=== PATIENT | male | born 1970 | race American Indian/Alaskan Native ===

== ENCOUNTER 2016-07-24 02:05 | Inpatient (IN) | payer MEDICAID, OTHER ==
--- NOTE | 2016-07-24 02:13 | C.PDOC ---
History Of Present Illness pt was medically cleared at [facility] and was accepted in transfer by dr gruber. Pt is depressed and had suicidal ideation. Pleasant and cooperative Time Seen by Provider: 07/24/16 02:12 History Per: Patient History/Exam Limitations: no limitations Current Symptoms Are (Timing): Still Present Suicide/Self Injury Attempted (Context): None Modifying Factor(s): None Severity: None Associated Symptoms: Depression, Suicidal Thoughts Involuntary Hold By: None Recent travel outside of the [place]: No Additional History Per: EMS Past Medical History Reviewed: Historical Data, Nursing Documentation, Vital Signs Vital Signs: Last Vital Signs Temp 97.9 F 07/24/16 02:13 Pulse 68 07/24/16 02:13 Resp 18 07/24/16 02:13 BP 143/80 07/24/16 02:13 Pulse Ox 100 07/24/16 02:13 Family History: States: No Known Family Hx Review Of Systems Constitutional: Negative for: Fever, Chills Cardiovascular: Negative for: Chest Pain Respiratory: Negative for: Shortness of Breath Neurological: Negative for: Weakness Psych: Positive for: Depression, Suicidal ideation Physical Exam - Physical Exam Appears: Non-toxic, No Acute Distress Skin: Warm, Dry Chest: Symmetrical Cardiovascular: Rhythm Regular Respiratory: No Rales, No Rhonchi, No Wheezing Gastrointestinal/Abdominal: Soft, No Tenderness Extremity: Normal ROM Neurological/Psych: Oriented x3, Normal Speech, Normal Cognition Gait: Steady ED Course And Treatment O2 Sat by Pulse Oximetry: 100 Pulse Ox Interpretation: Normal Disposition Discussed With : Janie Gruber Comment: accepted the pt on her service and took over the care at 2:27 AM Doctor Will See Patient In The: Hospital Counseled Patient/Family Regarding: Studies Performed, Diagnosis - Disposition Disposition: HOSPITALIZED Disposition Time: 02:13 Condition: FAIR - Clinical Impression Clinical Impression: Major depression Decision To Admit - Pt Status Changed To: Hospital Disposition Of: Inpatient - Admit Certification Admit to Inpatient:: After my assessment, the patient will require hospitalization for at least two midnights. This is because of the severity of symptoms shown, intensity of services needed, and/or the medical risk in this patient being treated as an outpatient. - InPatient: Physician Admission Certification: I certify that this patient requires 2 or more midnights of care for the following reason:: After my assessment, the patient will require hospitalization for at least two midnights. This is because of the severity of symptoms shown, intensity of services needed, and/or the medical risk in this patient being treated as an outpatient. - . Bed Request Type: Psychiatry Admitting Physician: Janie Gruber Patient Diagnosis: Major depression
[2016-07-24 03:01] VITALS: O2SAT 99
[2016-07-24] MEDS ORDERED: Pneumococcal 23-Valent Vaccine IM ONE (04:22)
--- NOTE | 2016-07-24 10:02 | PCM.PSYCH ---
Initial Psychiatric Evaluation - Initial Psychiatric Evaluation Type of Admission: Voluntary Legal Status: Capacity Chief Complaint (in patient's own words): I was feeling depressed and suicidal History of Present Illness and Precipitating Events: Patient is a 46 years old AAM, who came to the hospital with depressed mood and auditory hallucinations command type to kill himself. Patient reports a long history of drinking and depression. As per the patient, soon after discharge from the hospital last year, he stopped taking his medications and relapsed on drinking. Patient states that he is drinking since age of 6. He drinks 10-20 beers, and 1-2 pints of liquor on a daily. He also reports of smoking 1-2 bags on a daily basis. Patient states that yesterday he consumed more than 1 pints of vodka, and 7 beers, started hearing voices telling him to kill himself. He got concerned and came to the hospital to get help. Patient reports depressed mood, feelings of hopelessness and helplessness poor sleep and poor appetite. He reports auditory hallucinations and persecutory delusions that someone is following him. He denies visual hallucinations. He reports withdrawal symptoms from drinking including anxiety, headaches and sweating. He denies any seizures from drinking in the past. Past medical history History of DVT Current Medications: Active Medications Generic Name Dose Route Start Last Admin Trade Name Freq PRN Reason Stop Dose Admin Nicotine 1 patch 07/24/16 10:00 Nicoderm Cq TD DAILY MEGAN Past Psychiatric History - Past Psychiatric History Previous Treatment History: Inpatient Pertinent Medical Hx (Current Medical&Sleep Prob, Allergies): Allergies Allergy/AdvReac Type Severity Reaction Status Date / Time velazquez AdvReac RASH Verified 07/24/16 02:12 tomato AdvReac RASH Verified 07/24/16 02:13 No Known Home Med 07/24/16 Review of Systems - Review of Systems All systems: reviewed and no additional remarkable complaints except - Psychiatric Psychiatric: Anxiety, Depression, Irritability, Suicidal Ideation Mental Status Examination - Personal Presentation Personal Presentation: Looks stated age - Affect Affect: Constricted, Depressed - Motor Activity Motor Activity: Calm - Reliability in Providing Information Reliability in Providing Information: Poor, due to alteration in thoughts, Poor , due to altered mood - Speech Speech: Disorganized - Mood Mood: Depressed, Anxious - Formal Thought Process Formal Thought Process: Hallucinations, Delusions, Loosening of associations - Hallucinations/Delusions Hallucinations: Auditory Delusions: Persecution - Obsessions/Compulsions Obsessions: No Compulsions: No - Cognitive Functions Orientation: Person, Place, Situation, Time Sensorium: Alert Attention/Concentration: Attentive Abstract Thinking: [place] Estimate of Intelligence: Below average Judgement: Imparied, as evidence by: Poor judgement, Imparied, as evidence by: Lack of insight into illness - Risk Risk: Suicidal, Withdrawal, Diminished functioning - Strength & Assets Inventory Strength & Assets Inventory: Cooperative - Limitations Limitations: Living alone DSM 5 DX - DSM 5 DSM 5 Diagnosis: Major depressive disorder recurrent severe with psychotic features Rule out Schizoaffective disorder depressed type Alcohol use disorder severe Alcohol withdrawal uncomplicated Cocaine use disorder mild - Recommended/Plan of Treatment Treatment Recommendations and Plan of Treatment: Major depressive disorder recurrent severe with psychotic features Rule out Schizoaffective disorder depressed type CBT Psychoeducation Supportive therapy, group therapy, individual therapy Paxil 10 mg by mouth daily Risperdal 1 mg by mouth daily at bedtime Neurontin 100 mg by mouth 3 times a day Trazodone 50 mg by mouth daily at bedtime Alcohol use disorder severe CBT Psychoeducation Supportive therapy, individual therapy Use RI for abstinence Alcohol withdrawal uncomplicated CBT Psychoeducation Supportive therapy, individual therapy Librium when necessary Folic acid/thiamine/multivitamin Cocaine use disorder mild Monitor signs and symptoms Use RI for abstinence - Smoking Cessation Smoking Cessation Initiated: No
--- NOTE | 2016-07-25 13:20 | PCM.PYCHPN ---
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 The pt is compliant with medications and reports no side-effects. Symptoms are improving but needs more time to stabilize. After care discussed, support and psychoeducation given. Seroquel added for insomnia and irritability Medication Change: Yes (seroquel) Medical Record Reviewed: Yes Mental Status Examination - Cognitive Function Orientation: Person, Place, Situation, Time Memory: Impaired Attention: WNL Concentration: Poor Association: WNL Fund of Knowledge: Poor - Mood Mood: Depressed, Anxious - Affect Affect: Constricted, Depressed - Speech Speech: Appropriate - Formal Thought Process Formal Thought Process: Hallucinations, Delusions, Loosening of associations - Suicidal Ideation Suicidal Ideation: No - Homicidal Ideation Homicidal Ideation: No Goal/Treatment Plan - Goal/Treatment Plan Need for Continued Stay: Discharge may exacerbated symptoms, Severe functional impairment Progress Toward Problem(s) and Goals/Treatment Plan: Continue medications Support and psychoeducation daily Attend groups and activities daily After care planning: rehab Estimated Date of D/C: 07/30/16
--- NOTE | 2016-07-26 17:56 | PCM.PYCHPN ---
Psychiatric Progress Note - Psychiatric Progress Note Patient seen today, length of contact: 17 min Patient Chief Complaint: "I couldn't sleep again" Problems Identified/Issues Discussed: The pt is seen, chart reviewed, case discussed with staff. The pt is compliant with medications and reports no side-effects. Symptoms are improving. He says he didn;t sleep but staff say he did. Getachewpablo was skipped bc of that. will get tonight Podiatry called After care discussed, support and psychoeducation given. Wants rehab Medication Change: Yes (seroquel) Medical Record Reviewed: Yes Mental Status Examination - Cognitive Function Orientation: Person, Place, Situation, Time Memory: Impaired Attention: WNL Concentration: Poor Association: WNL Fund of Knowledge: Poor - Mood Mood: Depressed, Anxious - Affect Affect: Constricted, Depressed - Speech Speech: Appropriate - Formal Thought Process Formal Thought Process: Hallucinations, Delusions, Loosening of associations - Suicidal Ideation Suicidal Ideation: No - Homicidal Ideation Homicidal Ideation: No Goal/Treatment Plan - Goal/Treatment Plan Need for Continued Stay: Discharge may exacerbated symptoms, Severe functional impairment Progress Toward Problem(s) and Goals/Treatment Plan: Continue medications Support and psychoeducation daily Attend groups and activities daily After care planning: rehab Estimated Date of D/C: 07/30/16
--- NOTE | 2016-07-27 09:24 | CP.PCM.CON ---
History of Present Illness - History of Present Illness History of Present Illness: 46 year old with chief complaint of painful callouses and nails of both feet. Past Patient History - Infectious Disease Hx of Infectious Diseases: None - Past Social History Smoking Status: Heavy Smoker > 10 Cigarettes Daily - CARDIAC Other/Comment: DVGT OF RIGHT LEG. PT CLAIMS HE HAD A BLOOD CLOT TO HIS LEG - PULMONARY Hx Respiratory Disorders: No Hx Asthma: No - NEUROLOGICAL Hx Neurological Disorder: No - HEENT Hx HEENT Problems: No - RENAL Hx Chronic Kidney Disease: No - ENDOCRINE/METABOLIC Hx Endocrine Disorders: No - HEMATOLOGICAL/ONCOLOGICAL Hx Blood Disorders: No - INTEGUMENTARY Other/Comment: PT STATES ( SEEN) HE HAS AN OVER GROWTH OF SKIN TO BOTH HIS FEET, PLANTAR AREA. HE CLAIMS THEY NEED TO BE SCRAPED OFF AND WOULD LIKE TO SEE A TRIM LINE WORKER. BECAUSE OF THIS HE HAS DIFFICULTY WALKING R/T PAIN - MUSCULOSKELETAL/RHEUMATOLOGICAL Hx Musculoskeletal Disorders: No - GASTROINTESTINAL Hx Gastrointestinal Disorders: No - GENITOURINARY/GYNECOLOGICAL Hx Genitourinary Disorders: No - PSYCHIATRIC Hx Substance Use: Yes - SURGICAL HISTORY Hx Surgeries: No Hx Tonsillectomy: Yes ( A CHILD) - ANESTHESIA Hx Anesthesia: Yes Hx Anesthesia Reactions: No Meds Allergies/Adverse Reactions: Allergies Allergy/AdvReac Type Severity Reaction Status Date / Time velazquez AdvReac RASH Verified 07/24/16 02:12 tomato AdvReac RASH Verified 07/24/16 02:13 - Medications Medications: Current Medications Acetaminophen (Tylenol 325mg Tab) 650 mg PO Q6 PRN PRN Reason: Fever >100.4 F Dicyclomine HCl (Bentyl) 10 mg PO Q6 PRN PRN Reason: Muscle spasm Diphenhydramine HCl (Benadryl) 50 mg PO Q6 PRN PRN Reason: Extra Pyramidal Symptoms Last Admin: 07/25/16 21:15 Dose: 50 mg Gabapentin (Neurontin) 100 mg PO TID MEGAN Last Admin: 07/26/16 18:46 Dose: 100 mg Haloperidol (Haldol) 5 mg PO Q8 PRN PRN Reason: Moderate Agitation Haloperidol Lactate (Haldol) 5 mg IM Q8 PRN PRN Reason: Moderate Agitation Hydroxyzine HCl (Atarax) 25 mg PO Q6 PRN PRN Reason: Agitation Last Admin: 07/26/16 13:17 Dose: 25 mg Loperamide HCl (Imodium) 2 mg PO Q8 PRN PRN Reason: Diarrhea Lorazepam (Ativan) 1 mg PO Q6 PRN PRN Reason: Symptoms of alcohol withdrawl Last Admin: 07/26/16 09:26 Dose: 1 mg Nicotine (Nicoderm Cq) 1 patch TD DAILY [facility] Last Admin: 07/26/16 09:25 Dose: 1 patch Ondansetron HCl (Zofran Tab) 4 mg PO Q8H PRN PRN Reason: Nausea/Vomiting Paroxetine HCl (Paxil) 20 mg PO QAM MEGAN Quetiapine Fumarate (Seroquel) 100 mg PO HS [facility] Last Admin: 07/26/16 21:35 Dose: 100 mg Trazodone HCl (Desyrel) 50 mg PO HS [facility] Last Admin: 07/26/16 21:35 Dose: 50 mg Results - Vital Signs Recent Vital Signs: Last Vital Signs Temp 98.0 F 07/26/16 09:45 Pulse 108 H 07/26/16 16:28 Resp 19 07/26/16 09:45 BP 118/76 07/26/16 16:28 Pulse Ox 99 07/24/16 03:00
[2016-07-27 11:53] VITALS: RESP 20
--- NOTE | 2016-07-27 13:27 | PCM.PYCHPN ---
Psychiatric Progress Note - Psychiatric Progress Note Patient seen today, length of contact: 17 min Patient Chief Complaint: I was feeling depressed and suicidal Problems Identified/Issues Discussed: Pt was seen, chart reviewed and case discussed with staff. Pt is compliant with medications. States he is feeling better today. Reports he was able to get some sleep last night, but requesting increased dose of Seroquil. Pt also complains of dry mouth. Pt noted to be socializing, attending groups and activities. Pt denies current auditory and visual hallucinations, suicidal ideation and homicidal ideation. At the time of exam, pt is talkative, speech is disorganized, thought process is tangential and circumferential. Aftercare discussed, psychoeducation and support provided. Medication Change: Yes (seroquel) Medical Record Reviewed: Yes Mental Status Examination - Cognitive Function Orientation: Person, Place, Situation, Time Memory: Impaired Attention: WNL Concentration: Poor Association: WNL Fund of Knowledge: Poor - Mood Mood: Depressed, Anxious - Affect Affect: Constricted, Depressed - Speech Speech: Appropriate - Formal Thought Process Formal Thought Process: Hallucinations, Delusions, Loosening of associations - Suicidal Ideation Suicidal Ideation: No - Homicidal Ideation Homicidal Ideation: No Goal/Treatment Plan - Goal/Treatment Plan Need for Continued Stay: Discharge may exacerbated symptoms, Severe functional impairment Progress Toward Problem(s) and Goals/Treatment Plan: Major depressive disorder recurrent severe with psychotic features Rule out Schizoaffective disorder depressed type CBT Psychoeducation Supportive therapy, group therapy, individual therapy Paxil 10 mg by mouth daily Risperdal 1 mg by mouth daily at bedtime Neurontin 100 mg by mouth 3 times a day Trazodone 50 mg by mouth daily at bedtime Alcohol use disorder severe CBT Psychoeducation Supportive therapy, individual therapy Use ID for abstinence Alcohol withdrawal uncomplicated CBT Psychoeducation Supportive therapy, individual therapy Librium when necessary Folic acid/thiamine/multivitamin Cocaine use disorder mild Monitor signs and symptoms Use ID for abstinence Estimated Date of D/C: 07/30/16
--- NOTE | 2016-07-28 10:03 | PCM.PYCHPN ---
Psychiatric Progress Note - Psychiatric Progress Note Patient seen today, length of contact: 17 min Patient Chief Complaint: I feel better Problems Identified/Issues Discussed: Pt was seen, chart reviewed and case discussed with staff. Pt is compliant with medication, without any adverse effects. Pt states he is feeling much better, his mood is improved, and he slept well last night. Denies suicidal ideation, homicidal ideation and visual and auditory hallucinations. At the time of exam, pt is less disorganized and less tangential. Pt's symptoms are improving. Psychoeducation and support provided. Medication Change: Yes (increase risperdal, increase neurontin) Medical Record Reviewed: Yes Mental Status Examination - Cognitive Function Orientation: Person, Place, Situation, Time Memory: Impaired Attention: WNL Concentration: Poor Association: WNL Fund of Knowledge: Poor - Mood Mood: Depressed, Anxious - Affect Affect: Constricted, Depressed - Speech Speech: Appropriate - Formal Thought Process Formal Thought Process: Hallucinations, Delusions, Loosening of associations - Suicidal Ideation Suicidal Ideation: No - Homicidal Ideation Homicidal Ideation: No Goal/Treatment Plan - Goal/Treatment Plan Need for Continued Stay: Discharge may exacerbated symptoms, Severe functional impairment Progress Toward Problem(s) and Goals/Treatment Plan: Major depressive disorder recurrent severe with psychotic features Rule out Schizoaffective disorder depressed type CBT Psychoeducation Supportive therapy, group therapy, individual therapy Paxil 20 mg by mouth daily Risperdal 2 mg by mouth daily at bedtime Neurontin 300 mg by mouth 3 times a day Trazodone 50 mg by mouth daily at bedtime Seroquel 100 mg PO QHS Alcohol use disorder severe CBT Psychoeducation Supportive therapy, individual therapy Use MT for abstinence Alcohol withdrawal uncomplicated CBT Psychoeducation Supportive therapy, individual therapy Librium when necessary Folic acid/thiamine/multivitamin Cocaine use disorder mild Monitor signs and symptoms Use MT for abstinence Estimated Date of D/C: 07/30/16
--- NOTE | 2016-07-28 13:54 | CP.PCM.PN ---
Subjective - Date & Time of Evaluation Date of Evaluation: 07/28/16 Time of Evaluation: 14:13 - Subjective Subjective: 46 y/o male evaluated with b/l LE hypertrophic lesions on feet. Patient states that he has had these callouses bulding upfor some time. He stqaes that he usually cuts them down with a blade but has not been able to since he was admitted. States they are to a point that causes him pain when walking. Denies any f/c/n/v/sob. Objective - Vital Signs/Intake and Output Vital Signs (last 24 hours): Temp Pulse Resp BP Pulse Ox 97.1 F L 86 20 110/69 99 07/27/16 07:52 07/27/16 16:14 07/27/16 07:52 07/27/16 16:14 07/24/16 03:00 - Medications Medications: Current Medications Acetaminophen (Tylenol 325mg Tab) 650 mg PO Q6 PRN PRN Reason: Fever >100.4 F Dicyclomine HCl (Bentyl) 10 mg PO Q6 PRN PRN Reason: Muscle spasm Diphenhydramine HCl (Benadryl) 50 mg PO Q6 PRN PRN Reason: Extra Pyramidal Symptoms Last Admin: 07/25/16 21:15 Dose: 50 mg Gabapentin (Neurontin) 300 mg PO TID [facility] Last Admin: 07/28/16 13:46 Dose: 300 mg Haloperidol (Haldol) 5 mg PO Q8 PRN PRN Reason: Moderate Agitation Haloperidol Lactate (Haldol) 5 mg IM Q8 PRN PRN Reason: Moderate Agitation Hydroxyzine HCl (Atarax) 25 mg PO Q6 PRN PRN Reason: Agitation Last Admin: 07/26/16 13:17 Dose: 25 mg Loperamide HCl (Imodium) 2 mg PO Q8 PRN PRN Reason: Diarrhea Lorazepam (Ativan) 1 mg PO Q6 PRN PRN Reason: Symptoms of alcohol withdrawl Last Admin: 07/28/16 09:21 Dose: 1 mg Nicotine (Nicoderm Cq) 1 patch TD DAILY [facility] Last Admin: 07/28/16 09:21 Dose: 1 patch Ondansetron HCl (Zofran Tab) 4 mg PO Q8H PRN PRN Reason: Nausea/Vomiting Paroxetine HCl (Paxil) 20 mg PO QAM [facility] Last Admin: 07/28/16 09:21 Dose: 20 mg Quetiapine Fumarate (Seroquel) 100 mg PO HS [facility] Last Admin: 07/27/16 21:10 Dose: 100 mg Risperidone (Risperdal Tab) 1 mg PO DAILY MEGAN Risperidone (Risperdal Tab) 2 mg PO HS [facility] Trazodone HCl (Desyrel) 50 mg PO HS [facility] Last Admin: 07/27/16 21:10 Dose: 50 mg - Constitutional Appears: Well, Non-toxic - Additional Findings Additional findings: Vasc: DP/PT 1/4, Temp gradient wnl, Cap fill tiem < 4s x 10 Derm: NO edema, no erythema, no open lesions, no signs of infection, gross hypertrophic lesions at medial aspect of 1st MPJ, platnar 5th MT head, and heels , right 5th MT appears that there may be an underlying ulceration; lesions on dorsal PIPJ of 2/5 b/l as well nails mildly elongated x 10 Neuro: WNL Ortho: Limited due t pain. Assessment and Plan - Assessment and Plan (Free Text) Assessment: 46 y/o male seen and evaluated iwth b/l hypertrophic callous formation. Plan: Patient evaluated and chart reviewed. Discussed with Dr. Jenkins. Lac-Hydrin cream ordered for daily application. patient will need to have callousities trimmed; will need to obtain #10 blade fro [facility]. Will f/u with patient tomorrow.
[2016-07-28] MEDS: Ammonium Lactate 12% Lotion (225 g) EXT SCH (22:05)
[2016-07-29 09:44] VITALS: TEMP 97.6
--- NOTE | 2016-07-29 09:57 | PCM.PYCHPN ---
Psychiatric Progress Note - Psychiatric Progress Note Patient seen today, length of contact: 16 min Patient Chief Complaint: I feel better Problems Identified/Issues Discussed: Pt was seen, chart reviewed and case discussed with staff. Today patient reports improvement in his mood, and hallucinations. He denies any delusions and denies any suicidal ideation, or homicidal ideation. reports improvement in his voices and remained calm and cooperative. he is taking medication and denies any side effects. Psychoeducation and support provided. Patient was seen by a title checker yesterday and today Medication Change: Yes (increase neurontin) Medical Record Reviewed: Yes Mental Status Examination - Cognitive Function Orientation: Person, Place, Situation, Time Memory: Intact Attention: WNL Concentration: WNL Association: WNL Fund of Knowledge: WNL - Mood Mood: Anxious - Affect Affect: Constricted - Speech Speech: Appropriate - Formal Thought Process Formal Thought Process: Delusions - Suicidal Ideation Suicidal Ideation: No - Homicidal Ideation Homicidal Ideation: No Goal/Treatment Plan - Goal/Treatment Plan Need for Continued Stay: Discharge may exacerbated symptoms, Severe functional impairment Progress Toward Problem(s) and Goals/Treatment Plan: Major depressive disorder recurrent severe with psychotic features Rule out Schizoaffective disorder depressed type CBT Psychoeducation Supportive therapy, group therapy, individual therapy Paxil 20 mg by mouth daily Risperdal 1 mg by mouth daily Risperdal 2 mg by mouth daily at bedtime Neurontin 400 mg by mouth 3 times a day Trazodone 50 mg by mouth daily at bedtime Seroquel 100 mg PO QHS Alcohol use disorder severe CBT Psychoeducation Supportive therapy, individual therapy Use SC for abstinence Alcohol withdrawal uncomplicated CBT Psychoeducation Supportive therapy, individual therapy Librium when necessary Folic acid/thiamine/multivitamin Cocaine use disorder mild Monitor signs and symptoms Use SC for abstinence Estimated Date of D/C: 07/30/16 - Smoking Cessation Smoking Cessation Initiated: No
--- NOTE | 2016-07-29 12:30 | CP.PCM.PN ---
Subjective - Date & Time of Evaluation Date of Evaluation: 07/29/16 Time of Evaluation: 12:28 - Subjective Subjective: 46 y/o male evaluated with b/l LE hypertrophic lesions on feet. Patient doing well today. States he is going to go home tomorrow. Denies any acute events. Objective - Vital Signs/Intake and Output Vital Signs (last 24 hours): Temp Pulse Resp BP Pulse Ox 97.6 F 89 20 134/76 99 07/29/16 09:43 07/29/16 09:43 07/29/16 09:43 07/29/16 09:43 07/24/16 03:00 - Medications Medications: Current Medications Acetaminophen (Tylenol 325mg Tab) 650 mg PO Q6 PRN PRN Reason: Fever >100.4 F Dicyclomine HCl (Bentyl) 10 mg PO Q6 PRN PRN Reason: Muscle spasm Diphenhydramine HCl (Benadryl) 50 mg PO Q6 PRN PRN Reason: Extra Pyramidal Symptoms Last Admin: 07/25/16 21:15 Dose: 50 mg Gabapentin (Neurontin) 300 mg PO TID [facility] Last Admin: 07/29/16 10:07 Dose: 300 mg Haloperidol (Haldol) 5 mg PO Q8 PRN PRN Reason: Moderate Agitation Haloperidol Lactate (Haldol) 5 mg IM Q8 PRN PRN Reason: Moderate Agitation Hydroxyzine HCl (Atarax) 25 mg PO Q6 PRN PRN Reason: Agitation Last Admin: 07/26/16 13:17 Dose: 25 mg Lactic Acid (Lac-Hydrin 12% Lotion (225 G)) 0 gm EXT DAILY [facility] Last Admin: 07/28/16 22:05 Dose: 1 applic Loperamide HCl (Imodium) 2 mg PO Q8 PRN PRN Reason: Diarrhea Lorazepam (Ativan) 1 mg PO Q6 PRN PRN Reason: Symptoms of alcohol withdrawl Last Admin: 07/28/16 09:21 Dose: 1 mg Nicotine (Nicoderm Cq) 1 patch TD DAILY [facility] Last Admin: 07/29/16 10:03 Dose: 1 patch Ondansetron HCl (Zofran Tab) 4 mg PO Q8H PRN PRN Reason: Nausea/Vomiting Paroxetine HCl (Paxil) 20 mg PO QAM [facility] Last Admin: 07/29/16 10:02 Dose: 20 mg Quetiapine Fumarate (Seroquel) 200 mg PO [facility] Last Admin: 07/28/16 22:05 Dose: 200 mg Risperidone (Risperdal Tab) 1 mg PO DAILY [facility] Last Admin: 07/29/16 10:03 Dose: 1 mg Risperidone (Risperdal Tab) 2 mg PO HS [facility] Last Admin: 07/28/16 22:05 Dose: 2 mg Trazodone HCl (Desyrel) 50 mg PO [facility] Last Admin: 07/28/16 22:04 Dose: 50 mg - Constitutional Appears: Well, Non-toxic, No Acute Distress - Additional Findings Additional findings: Vasc: DP/PT 1/4, Temp gradient wnl, Cap fill tiem < 4s x 10 Derm: NO edema, no erythema, no open lesions, no signs of infection, gross hypertrophic lesions at medial aspect of 1st MPJ, platnar 5th MT head, and heels , right 5th MT appears that there may be an underlying ulceration; lesions on dorsal PIPJ of 2/5 b/l as well nails mildly elongated x 10 Neuro: WNL Ortho: Limited due t pain. Assessment and Plan - Assessment and Plan (Free Text) Assessment: 46 y/o male seen and evaluated iwth b/l hypertrophic callous formation. Plan: Patient evaluated and chart reviewed Discussed with Dr. Jenkins Calluses and nails debrided x 10 w/o complication To continue to apply lac hydrin daily to callousities Re consult as needed.
[2016-07-29] MEDS: Ammonium Lactate 12% Lotion (225 g) EXT SCH (22:04)
--- NOTE | 2016-07-30 09:35 | PCM.PYCHDC ---
Mental Status Examination - Mental Status Examination Orientation: Person, Place, Situation, Time Memory: Intact Mood: Anxious Affect: Broad Speech: Appropriate Attention: WNL Concentration: WNL Association: WNL Fund of Knowledge: WNL Formal Thought Process: No Impairment Suicidal Ideation: No Current Homicidal Ideation?: No Discharge Summary - Discharge Note Reason for Hospitalization: Suicidal thoughts Consultations:: List each consultation separately and include: 1. Reason for request. 2. Findings. 3. Follow-up Consultations: Podiatry Summary of Hospital Course include:: 1. Description of specific treatment plan utilized for patients during their course of treatmen. 2. Summarize the time- course for resolution of acute symptoms and/or regressed behaviors. 3. Describe issues identified and worked on during hospitalization. 4. Describe medication utilized. 5. Describe medical problems identified and treated. 6. Reassessment of suicide risk Summary of Hospital Course: Patient is a 46 years old AAM, single. He is seen today for d/c and case discussed, chart reviewed. On admission: He came to the hospital with depressed mood and auditory hallucinations command type to kill himself. Patient reports a long history of drinking and depression. As per the patient, soon after discharge from the hospital last year, he stopped taking his medications and relapsed on drinking. Patient states that he is drinking since age of 6. He drinks 10-20 beers, and 1-2 pints of liquor on a daily. He also reports of smoking 1-2 bags on a daily basis. Patient states that yesterday he consumed more than 1 pints of vodka, and 7 beers, started hearing voices telling him to kill himself. He got concerned and came to the hospital to get help. Patient reports depressed mood, feelings of hopelessness and helplessness poor sleep and poor appetite. He reports auditory hallucinations and persecutory delusions that someone is following him. He denies visual hallucinations. He reports withdrawal symptoms from drinking including anxiety, headaches and sweating. He denies any seizures from drinking in the past. Hospital course: The pt was admitted and started on treatment with psychotherapy, support, psychoeducation and medications. OK and CBT used. He is seen by podiatry, too. The pt attended groups and activities, as well as milieu therapy. All the risks and benefits of medications are discussed and the patient understood and agreed. After care discussed with the patient. He wanted to go to [facility] outpt program - Final Diagnosis (DSM 5) Condition upon Discharge: FAIR DSM 5: Major depressive disorder recurrent severe with psychotic features Rule out Schizoaffective disorder depressed type Alcohol use disorder severe Alcohol withdrawal uncomplicated Cocaine use disorder mild Disposition: HOME/ ROUTINE Follow-up Treatment Plan: Medications are sent to a pharmacy in [place] but then cancelled by the communications writer. He asked for a written Rx for all. Given. Attend aftercare: [facility] in [place]. User relapse prevention skills. Return to ED if experience suicidal ideation, homicidal ideation, hallucinations , agitation. Prescriptions/Medication Reconciliation: traZODone [Desyrel] 50 mg PO HS #30 tab Gabapentin [Neurontin] 400 mg PO TID #90 cap PARoxetine [Paxil] 20 mg PO QAM #30 tab risperiDONE [RisperDAL Tab] 2 mg PO HS #30 tab QUEtiapine [Seroquel] 200 mg PO HS #30 tab - Smoking Cessation Smoking Cessation Medication prescribed: No - Antipsychotic Medications Pt discharged on 2 or more routine antipsychotic medications: Yes - Justification for 2 or more meds Plan to taper monotherapy: List medications: seroquel was used for sleep per his request and will be stopped.
[2016-07-30] MEDS: Ammonium Lactate 12% Lotion (225 g) EXT SCH (10:26)
[2016-07-30 14:07] VITALS: BP 128/79; PULSE 84
== END 2016-07-30 14:15 | disposition home or self-care (01) | DRG 750 ==
LOC: C.ER 02:05 → SUPCPDRO 02:05 → C.5E 02:30
PROVIDERS: ADMIT Psychiatry & Neurology Psychiatry; ATTEND Psychiatry & Neurology Psychiatry
PROC: GZ56ZZZ Individual Psychotherapy, Supportive (ICD-10-PCS; principal; 2016-07-24)
PROC: GZHZZZZ Group Psychotherapy (ICD-10-PCS; 2016-07-24)
DX: F10.239 Alcohol dependence with withdrawal, unspecified (principal); F33.3 Major depressive disorder, recurrent, severe with psychotic symptoms; F14.90 Cocaine use, unspecified, uncomplicated; R45.851 Suicidal ideations; F41.9 Anxiety disorder, unspecified; G47.00 Insomnia, unspecified; Z86.718 Personal history of other venous thrombosis and embolism; F17.200 Nicotine dependence, unspecified, uncomplicated; Z68.22 Body mass index [BMI] 22.0-22.9, adult